=== PATIENT | female | born 1990 | race Caucasian/White ===

== ENCOUNTER 2025-02-05 10:45 | Outpatient (CLI) | payer BC, SELFPAY ==
[2025-02-05 11:23] LABS: Hematocrit 46.9 % (35.0-49.0); Hemoglobin 15.5 g/dL (12.0-15.0); Mean Corpuscular HGB Conc 33.0 g/dL (32-36); Mean Corpuscular Hemoglobin 29.2 pg (27.0-31.0); Mean Corpuscular Volume 88.3 fL (78.0-102.0); Platelet Count Result 375 K/mm3 (150-420); Red Blood Count 5.31 M/mm3 (4.20-5.40); White Blood Count 13.1 K/mm3 (4.8-10.8)
--- OUTSIDE RECORDS SUMMARY | 2025-02-05 11:23 | XMS_ITS | Clinical Summary ---
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 Name Role Phone Selvin Andres MD Primary Care Provide r Allergies No known active allergies Medications OMEPRAZOLE ORAL 4 Active testosterone 20.25 mg/1.25 gram (1.62 %) gel in metered-dose pumpIndications: Hormone replacement therapy (HRT) Place 20.25 mg on the skin daily 75 g 5 5 Active magnesium gluconate 200 mg tablet 1.25 tablets (250 mg total) 4 01/17/20 25 Discontinu ed(Therapy completed) Active Problems Problem Noted Date Diagnosed Date [id number] transgender person 10/08/2022 Primary hypertension 10/08/2022 Gender dysphoria 05/26/2022 Resolved Problems Problem Noted Date Diagnosed Date Resolved Date Abnormal uterine bleeding 10/08/2022 Dysmenorrhea 10/08/2022 01/14/2023 Encounters Date Type Department Care Team Description 01/16/2025 3:00 PM CDT Office Visit [facility] Endocrinology Metabolism and Lipid [address] [place] [address] Gender dysphoria (Primary Dx) 12/14/2024 Orders Only [facility] Endocrinology Metabolism and Lipid [address] [place] [address] Yrn Mauricio MD Hormone replacement therapy (HRT) from Last 3 Months Surgical History Surgery Date Site/Laterality Comments WISDOM TOOTH EXTRACTION 06/20/2006 - 2007 Medical History Medical History Date Comments Gender dysphoria PONV (postoperative nausea and vomiting) Abnormal uterine bleeding 10/08/2022 Dysmenorrhea 10/08/2022 Social History Tobacco Use Types Packs/Day Years Used Date Smoking Tobacco: Never Smokeless Tobacco: Never Tobacco Cessation:Counseling Given: Not Answered Comments:Cigar 2/year AUDIT-C Answer Date Recorded Q1: How often do you have a drink containing alc ohol? 2-4 times a month 12/22/2022 Q2: How many drinks containi ng alcohol do you have on a typical day when you are drinking? 1 or 2 12/22/2022 Q3: How often do you have si x or more drinks on one occasion? Never 12/22/2022 Personal Safety Answer Date Recorded Have you ever been in or are you currently in a harmful physical or emotional relationship or is someone making you feel afraid or unsafe? Denies 12/28/2022 Comments No Sex and Gender Information Value Date Recorded Sex Assigned at Female 09/03/2022 4:46 PM CDT Legal Sex Female 8:09 AM CDT Gender Identity Non-Binary 04/19/2022 2:06 PM CDT Sexual Orientation asexual 05/25/2022 7: 47 AM [employer] Obstetrics History Para Term AB IAB SAB Ectopic Multiple Livin g Live Births 0 0 0 0 0 0 0 0 0 0 0 Last Filed Vital Signs Vital Sign Reading Time Taken Comments Blood Pressure 152/95 01/16/2025 3:16 PM CDT Pulse 93 01/16/2025 3:16 PM CDT Temperature 36.8 C (98.3 F) 01/16/2025 3:16 PM CDT Respiratory Rate 9 12/28/2022 7:00 PM CDT Oxygen Saturation 100% 12/28/2022 7:00 PM CDT Inhaled Oxygen Concentration - - Weight 91.2 kg (201 lb) 01/16/2025 3:16 PM CDT Height 160 cm (5' 3) 01/16/2025 3:16 PM CDT Body Mass Index 35.61 01/16/2025 3:16 PM CDT Plan of Treatment Health Maintenance Due Date Last Done Comments Depression Screening 1989 Hepatitis C Screening 1989 DTaP/Tdap/Td Vaccine (1 - Tdap) 2000 Varicella Vaccines (1 of 2 - 13+ 2-dose series) 2002 Hepatitis B Screening 2007 Regular Well Visit/Exam 18-64 2007 HPV Vaccines (1 - 3-dose SCDM series) 2016 Covid-19 Vaccine (4 - season) 2024 05/12/2021, 10/05/2020, 09/14/2020 Influenza Vaccine (#1) 2025 , 07/21/2019, 05/22/2018, Additional history exists Pneumococcal vaccine <65 Aged Out No longer eligible based on patient's age to complete this topic Insurance [place] Care Teams Outboard Motorboat Rigger Relationship Specialty Start Date End Date Selvin Andres MD [address] [place] [address] PCP - General Family Medicine 11/06/21
[2025-02-05 11:26] LABS: Add Urine Microscopic? NO; Appearance Urine Clear (Clear); Glucose Urine UA Negative (Negative); Leukocyte Esterase Ur Negative (Negative); Nitrate Urine Negative (Negative); Specific Grav Ur 1.020 (1.010-1.020)
[2025-02-05 11:45] LABS: Alanine Aminotransferase 21 U/L (6-35); Albumin Level 4.8 g/dL (3.5-5.1); Alkaline Phosphatase 101 U/L (38-126); Amylase 71 U/L (30-110); Anion Gap 10 mmol/L (4-12); Aspartate Amino Transferase 23 U/L (14-36); Bilirubin,Total 0.7 mg/dL (0.2-1.3); Blood Urea Nitrogen 15 mg/dL (7-17); Calcium 10.1 mg/dL (8.4-10.2); Carbon Dioxide 27 mmol/L (22-30); Chloride 103 mmol/L (98-107); Estimated Glomerular Filt Rate > 60; Glucose 100 mg/dL (65-110); Lipase 233 U/L (23-300); Osmolality Calculated 290 mOsm/kg (285-295); Potassium 5.3 mmol/L (3.4-5.0); Sodium 140 mmol/L (137-145); Total Protein 7.6 g/dL (6.3-8.2)
[2025-02-06 10:39] LABS: Immature Granulocyte Percent A 0.3 % (0.0-0.0); Lymphocytes Absolute Auto 2.76 K/mm3 (1.10-4.50); Nucleated Red Blood Cells Absolute Auto 0.00 K/mm3 (0.00-0.00); Nucleated Red Blood Cells Perc 0.0 % (0-0.0)
== END 2025-02-05 10:46 | disposition home or self-care (01) ==
LOC: CHSLAB 10:49
PROVIDERS: PCP Family Medicine; Visit Provider Family Medicine
DX: R10.9 Unspecified abdominal pain (principal)
CPT/HCPCS: 36415; 80053; 81003; 82150; 83690; 85025; 85027

== ENCOUNTER 2025-02-19 08:09 | Outpatient (CLI) | payer BC, SELFPAY ==
--- NOTE | ~2025-02-19 | US_ITS ---
US abdomen complete EXAMINATION: US Abdomen Complete INDICATION: Unspecified abdominal pain. Nausea and vomiting. PROCEDURE: Realtime High Resolution abdomen ultrasound. COMPARISON: No prior studies for comparison FINDINGS: Gallbladder within normal limits. No gallstones, pericholecystic fluid, gallbladder wall thickening or biliary dilatation. Common bile duct measures 3 mm. Liver echotexture within normal limits without focal mass. Pancreas within normal limits. Pancreatic tail is obscured by bowel gas. Spleen is unremarkeable. Renal echotexture is within normal limits bilaterally without hydronephrosis, contour deforming mass or renal stone. Right kidney measures 10.4 x 4.1 x 4.9 cm. Left kidney measures 10.5 x 3.9 x 5.0 cm. Visualized aspects of the aorta and IVC are within normal limits. Portal vein is patent. No sonographic Carson's sign indicated by the technologist. IMPRESSION: 1: Unremarkable study. If symptoms persist or worsen, consider a short-term follow-up study or additional imaging for further assessment. Reviewed, dictated and finalized at location Q. IMPRESSION: 1: Unremarkable study. If symptoms persist or worsen, consider a short-term follow-up study or additio nal imaging for further assessment.
== END 2025-02-19 08:10 | disposition home or self-care (01) ==
LOC: GOSHIMG 08:09
PROVIDERS: PCP Family Medicine; Visit Provider Family Medicine
DX: R10.9 Unspecified abdominal pain (principal); R11.2 Nausea with vomiting, unspecified
CPT/HCPCS: 76700